=== PATIENT | female | born 1975 | race Caucasian/White ===

== ENCOUNTER 2019-03-13 09:12 | Emergency (ER) | payer OTHER ==
[2019-03-13] MEDS: KETOROLAC 60 MG INJ IM (10:45)
[2019-03-13] MEDS: DEXAMETHASONE 4 MG TAB PO (11:01)
== END 2019-03-13 11:22 | disposition home or self-care (01) ==
LOC: FTE 11:22
DX: M54.31 Sciatica, right side (principal)
CPT/HCPCS: 96372; 99284-25